=== PATIENT | female | born 2005 | race Caucasian/White ===

== ENCOUNTER 2024-02-15 13:06 | Outpatient (CLI) | payer BC, SELFPAY ==
--- NOTE | 2024-02-15 13:00 | CRLHL7_ITS ---
For Patients: As a result of the Century Cures Act, medical imaging exams and procedure reports are released immediately into your electronic medical record. You may view this report before your referring provider. If you have questions, please contact your health care provider. INDICATION: Enlarged lymph node or 6+ weeks. TECHNIQUE: Ultrasound soft tissues right neck grayscale and color Doppler images. FINDINGS: Enlarged 3.1 x 2.0 x 1.5 cm lymph node adjacent to the right submandibular gland corresponding to the patient`s lump. Recommend tissue sampling with ultrasound fine needle aspiration or core needle biopsy. Dictated by Edmund Salas MD @ 02/17/2024 8:38:02 AM (Electronically Signed)
== END 2024-02-15 13:07 | disposition home or self-care (01) ==
PROVIDERS: PCP Physician Assistant; Visit Provider Nurse Practitioner Family
DX: R59.0 Localized enlarged lymph nodes (principal)
CPT/HCPCS: 76536

== ENCOUNTER 2024-02-24 11:06 | Outpatient (CLI) | payer BC, SELFPAY ==
--- NOTE | 2024-02-24 11:15 | CRLHL7_ITS ---
For Patients: As a result of the Century Cures Act, medical imaging exams and procedure reports are released immediately into your electronic medical record. You may view this report before your referring provider. If you have questions, please contact your health care provider. ULTRASOUND-GUIDED RIGHT CERVICAL LYMPH NODE BIOPSY CLINICAL HISTORY: Enlarged right cervical lymph node COMPARISON STUDIES: 02/15/2024 TECHNIQUE: Real-time ultrasound with image documentation was used for targeting the right cervical lymph node lesion. Core biopsy specimens were obtained using an 18 gauge Temno biopsy needle. CONSENT and TIME OUT: The procedure, risks, and alternatives were explained to the patient and a consent was signed. [place] Protocol was followed including pre-procedure verification that relevant information/documentation was available, reviewed and properly matched to the patient; consent accurate and complete; and equipment and supplies available. Time Out was conducted just prior to starting procedure to verify the four required elements: patient identity, correct side/site marked (if applicable), procedure, relevant images/results properly labeled and displayed (if applicable). PROCEDURE: The patient was positioned supine on the ultrasound table. The right neck was prepped with ChloraPrep. 6 cc of 1 percent lidocaine used for local anesthesia. Core samples were obtained. The specimens were placed in 10% formalin and sent to the pathology department. Pressure was held on the biopsy site until all bleeding subsided. The skin incision was closed with Steri-Strips. LATERALITY: Right neck LESION: Hypoechoic lymph node measures 2.0 x 1.5 x 3.1 cm SUSPICION FOR MALIGNANCY: Moderate NUMBER OF SAMPLES: 5 IMPRESSION: Ultrasound-guided right cervical lymph node biopsy. Dictated by Phillip Pederson MD @ 02/26/2024 1:21:11 PM (Electronically Signed)
== END 2024-02-24 11:07 | disposition home or self-care (01) ==
LOC: US 11:06
PROVIDERS: PCP Physician Assistant; Visit Provider Nurse Practitioner Family
DX: R59.0 Localized enlarged lymph nodes (principal)
CPT/HCPCS: 20206; 76942; 88305; 88341; 88342; 88365; A4649